=== PATIENT | female | born 1940 | race Caucasian/White ===

== ENCOUNTER 2017-03-03 17:48 | Emergency (ER) | payer MEDICARE, OTHER ==
--- NOTE | 2017-03-03 18:31 | ER NURSING DOCUMENTATION ---
Nurse's Notes [facility] Name:Adriana Lentz Age:76 yrs Sex:Female :1940 Arrival Date:03/03/2017 Time:17:48 Bed1 Private MD:Anmol Rob Diagnosis:Cellulitis of Toe Presentation: 03/03 18:03 Presenting complaint: Patient states: dropped a book on her right big toe yesterday. sc1 c/o worsening pain and redness. Transition of care: Home. 18:03 Method Of Arrival: Private Vehicle me1 18:03 Acuity: OLU 4 sc1 Triage Assessment: 18:09 General: Appears in no apparent distress, well developed, well nourished, well groomed, sc1 Behavior is cooperative, pleasant. Pain: Complains of pain in right first toe and Right first toenail. Musculoskeletal: Circulation, motion, and sensation intact Capillary refill < 3 seconds. Injury Description: Bruise. Historical: - Allergies: Latex; - Home Meds: 1. Lisinopril Oral 2. Synthroid Oral - PMHx: HYPERTENSION; HYPOTHYROIDISM; Lower Limb Abrasion w/o Infection (June 30, 2015); - PSHx: HYSTERECTOMY; THYROIDECTOMY; - Tetanus: < 10 years. - Ebola Screening: : Patient negative for fever greater than or equal to 101.5 degrees Fahrenheit, and additional compatible Ebola Virus Disease symptoms. Patient denies exposure to infectious person. Patient denies travel to an Ebola-affected area in the 21 days before illness onset. . - Immunization history: Pneumococcal vaccine is up to date, Flu Vaccine < 1 year. - Social history: Smoking status: Patient states was never smoker of tobacco. Patient uses alcohol only on a social basis. Patient/guardian denies using street drugs, IV drugs, marijuana. Screenin:12 Infectious Disease Risk None. Abuse screen: Denies threats or abuse. Nutritional sc1 screening: No deficits noted. Vital Signs: 18:09 BP 151 / 69; Pulse 78; Resp 16; Temp 98.4; Pulse Ox 95% on R/A; sc1 ED Course: 17:49 Patient arrived in ED. ds 17:49 Anmol Rob MD is Private Physician. ds 18:03 Freya Chou RN is Primary Nurse. me1 18:04 Triage completed. sc1 18:[address] Hunter notified. Allergy Band Placed Arm band placed on Bed in [facility] low position Call Light in Reach HOB Elevated. X-ray done. X-ray ordered. 18:06 Port Xray Completed. tt 18:07 Bruce Hunter MD is Attending Physician. me 18:12 Portable x-ray done. [facility] 18:20 Anmol Rob MD is Referral Physician. me 18:30 Valuables Remains with patient. [facility] Administered Medications: No medications were administered Outcome: 18:22 Discharge ordered by . me 18:29 Discharged to home ambulatory. [facility] 18:29 Condition: stable 18:29 Discharge instructions given to patient, Instructed on discharge instructions, follow up and referral plans. medication usage, Demonstrated understanding of instructions, medications, Prescriptions given X 1. 18:30 Patient left the ED. [facility] 04 11:00 Discharge F/U Call: Spoke with: patient. Overall Care on a scale of 1-10 with 10 ma being the best care, you rate our care as: Other comments: States is feeling better and care was fine Signatures: Freya Chou, RN RN [facility] Keila Haider, RN RN aaliyah Srot, [place], Reg Reg ds Bruce Hunter MD MD me Maritza Gomez Roshan Milton
--- NOTE | 2017-03-03 18:31 | ER PHYSICIAN DOCUMENTATION ---
Physician Documentation [facility] Name:Adriana Lentz Age:76 yrs Sex:Female :1940 Arrival Date:03/03/2017 Time:17:48 Bed1 Private MD:Anmol Rob ED, Scott Disposition: 03/03/17 18:22 Discharged to Home/Self Care. Impression: Cellulitis of Toe. - Condition is Good. - Discharge Instructions: CELLULITIS. - Prescriptions for Keflex 500 mg Oral Capsule - take 1 capsule by ORAL route every 8 hours for 10 days; 30 capsule. - Medical Reconciliation form form. - Follow up: Anmol Rob MD; When: As needed; Reason: Continuance of care. - Problem is new. - Symptoms are unchanged. HPI: 03/03 18:18 This 76 yrs old Female presents to ER via Private Vehicle with complaints of sc Toe Injury. 18:18 The patient presents with an injury, pain. The complaints affect the right foot. sc Context: The problem was sustained at home, resulted from a heavy object falling, a book. Onset: The symptom(s)/episode began/occurred yesterday. Associated signs and symptoms: The patient has no apparent associated signs or symptoms. Historical: - Allergies: Latex; - Home Meds: 1. Lisinopril Oral 2. Synthroid Oral - PMHx: HYPERTENSION; HYPOTHYROIDISM; Lower Limb Abrasion w/o Infection (June 30, 2015); - PSHx: HYSTERECTOMY; THYROIDECTOMY; - Tetanus: < 10 years. - Ebola Screening: : Patient negative for fever greater than or equal to 101.5 degrees Fahrenheit, and additional compatible Ebola Virus Disease symptoms. Patient denies exposure to infectious person. Patient denies travel to an Ebola-affected area in the 21 days before illness onset. . - Immunization history: Pneumococcal vaccine is up to date, Flu Vaccine < 1 year. - Social history: Smoking status: Patient states was never smoker of tobacco. Patient uses alcohol only on a social basis. Patient/guardian denies using street drugs, IV drugs, marijuana. ROS: 18:19 MS/extremity: Positive for injury or acute deformity, erythema, pain. sc 18:19 Constitutional: Negative for fever, chills, and weight loss. sc Eyes: Negative for injury, pain, redness, and discharge. Neck: Negative for injury, pain, and swelling. Back: Negative for injury and pain. Skin: Negative for injury, rash, and discoloration. 18:19 Neuro: Negative for headache, weakness, numbness, tingling, and seizure. Exam: Constitutional: This is a well developed, well nourished patient who is awake, alert, and in no acute distress. Head/Face: Normocephalic, atraumatic. Neck: Trachea midline, no thyromegaly or masses palpated, and no cervical lymphadenopathy. Supple, full range of motion without nuchal rigidity, or vertebral point tenderness. No meningismus. Cardiovascular: Regular rate and rhythm with a normal S1 and S2. No gallops, murmurs, or rubs. Normal PMI, no JVD. No pulse deficits. Respiratory: Lungs have equal breath sounds bilaterally, clear to auscultation and percussion. No rales, rhonchi or wheezes noted. No increased work of breathing, no retractions or nasal flaring. Back: No spinal tenderness. No costovertebral tenderness. Full range of motion. 18:20 Neuro: Awake and alert, GCS 15, oriented to person, place, time, and situation. ak Cranial nerves II-XII grossly intact. Motor strength 5/5 in all extremities. Sensory grossly intact. Cerebellar exam normal. Normal gait. 18:20 Musculoskeletal/extremity: Extremities: grossly normal except: erythema, pain, ROM: intact in all extremities, Circulation is intact in all extremities. Sensation intact. Vital Signs: 18:09 BP 151 / 69; Pulse 78; Resp 16; Temp 98.4; Pulse Ox 95% on R/A; sc1 MDM: 18:20 Differential diagnosis: fracture, sprain, arthritis, gout, cellulitis. Data reviewed: ak vital signs, nurses notes, and as a result, I will discharge patient. Counseling: I had a detailed discussion with the patient and/or guardian regarding: the historical points, exam findings, and any diagnostic results supporting the discharge/admit diagnosis, radiology results, the need for outpatient follow up. 18:22 Patient medically screened. ak 03/03 18:09 Order name: TOE(S) MIN 2V [place] [id number]; Complete Time: 18:24 EDMS 03/03 18:24 Interpretation: Normal. sc Dispensed Medications: No medications were administered Signatures: Freya Chou RN RN sc1 Bruce Hunter MD MD ak
--- NOTE | 2017-03-04 13:54 | RADIOLOGY REPORT ---
Four views of the right great toe demonstrate a 2 mm calcification projecting adjacent to the medial and proximal portion of the distal phalanx raising concern for possible small avulsion fracture of indeterminate age. No other bony abnormality is identified. The visualized joints appear unremarkable. IMPRESSION: Question small avulsion fracture as described. The emergency department was notified of this report on 03/04/2017 at 1400 hours. KRISTOPHER
== END 2017-03-03 18:30 | disposition home or self-care (01) ==
LOC: ER 17:48
DX: L03.031 Cellulitis of right toe (principal); I10 Essential (primary) hypertension; Z79.899 Other long term (current) drug therapy
CPT/HCPCS: 73660; 99283